=== PATIENT | male | born 1945 | race Caucasian/White ===

== ENCOUNTER 2017-06-21 08:04 | Inpatient (IN) | payer OTHER ==
[~2017-06-21 08:04] MED LIST: BACITRACIN 50,000 UNITS/10 ML SYR IRR ONE; BUPIVACAINE 0.25% 30 ML SDV ONE; CHLORHEXIDINE GLUC HIBICLENS 118 ML BTL TP ONE; THROMBIN (BOVINE) 5,000 UNIT VIAL TP ONE
[2017-06-21] MEDS ORDERED: ACETAMINOPHEN 500 MG TAB PO ONE (08:21)
[2017-06-21] MEDS ORDERED: ceFAZolin 2 GM/SWFI 2 GM/20 ML SYR IVP ONE (08:21)
[2017-06-21] MEDS ORDERED: NS 500 ML IV ONE (08:26)
[2017-06-21] MEDS ORDERED: LIDOCAINE 1% 2 ML INJ ID PRN (08:26)
[2017-06-21] MEDS ORDERED: THROMBIN (BOVINE) 5,000 UNIT VIAL TP ONE ×2 (09:10→19:11)
[2017-06-21] MEDS: hydrALAZINE 20 MG/ML VIAL IVP PRN ×2 (13:28→22:43)
[2017-06-21] MEDS ORDERED: ACETAMINOPHEN 500 MG TAB ONE (16:02)
[2017-06-21] MEDS ORDERED: ceFAZolin 2 GM/SWFI 20 ML SYR IVP ONE (16:18)
--- NOTE | 2017-06-21 17:25 | PDANEPAE ---
ANE History of Present Illness ACDF C4-5 ANE Past Medical History - Cardiovascular History Hx Hypertension: Yes Hx Arrhythmias: No Hx Chest Pain: No Hx Coronary Artery / Peripheral Vascular Disease: No Hx CHF / Valvular Disease: No Hx Palpitations: No Cardiovascular History Comment: HPL, poorly controlled HTN, also with bradycardia noted on floor today. Echo with LVEF of 64% - Pulmonary History Hx COPD: No Hx Asthma/Reactive Airway Disease: No Hx Recent Upper Respiratory Infection: No Hx Oxygen in Use at Home: No Hx Sleep Apnea: No Sleep Apnea Screening Result - Last Documented: Positive - Neurologic History Hx Cerebrovascular Accident: No Hx Seizures: No Hx Dementia: No - Endocrine History Hx Diabetes: Yes Hypothyroid: Yes Hyperthyroid: No Obesity: mild Endocrine History Comment: DM TYPE 2, on insulin for 15 years, also on oral agents. 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 MOHS PROCEDURE 1999. CATARACT 1999 ANE Review of Systems Review of Systems: - Exercise capacity METS (RN): 4 METS ANE Patient History - Allergies Allergies/Adverse Reactions: No Known Allergies Allergy (Unverified 06/18/17 10:51) - Home Medications Home Medications: Herbals/Supplements -Info Only 1 ea PO DAILY 06/18/17 [Last Taken Unknown] Insulin Detemir [Levemir] 25 unit SQ DAILY 06/18/17 [Last Taken Unknown] Levothyroxine [Synthroid 75 mcg (*)] 75 mcg PO DAILY06 06/18/17 [Last Taken Unknown] Pioglitazone HCl [Actos] 30 mg PO HS 06/18/17 [Last Taken Unknown] Quinidine Gluconate [Quinidine Gluconate 324 MG] 324 mg PO HS 06/18/17 [Last Taken Unknown] Rosuvastatin Calcium [Crestor 10mg (RX)] 10 mg PO HS 06/18/17 [Last Taken Unknown] Valsartan [Diovan (*)] 80 mg PO HS 06/18/17 [Last Taken Unknown] Insulin Detemir [Levemir] 18 unit SQ HS 06/21/17 [Last Taken Unknown] - NPO status NPO Since - Liquids (Date): 06/21/17 NPO Since - Liquids (Time): 06:30 NPO Since - Solids (Date): 06/21/17 NPO Since - Solids (Time): 06:00 - Smoking Hx Smoking Status: Never smoked - Family Anes Hx Family Hx Anesthesia Complications: NA ANE Labs/Vital Signs - Vital Signs Blood Pressure: 169/70 Heart Rate: 38 Respiratory Rate: 12 O2 Sat (%): 90 Height: 172.72 cm Weight: 78.925 kg ANE Physical Exam - Airway Neck exam: decreased ROM (Decreased cervical extension due to pain) Mallampati Score: Class 2 Mouth exam: dentures - Pulmonary Pulmonary: clear to auscultation - Cardiovascular Cardiovascular: regular rate and rhythym - ASA Status ASA Status: III ANE Anesthesia Plan Anesthesia Plan: general endotracheal anesthesia
[2017-06-21] MEDS ORDERED: SCOPOLAMINE HYDROBROMIDE 1 MG/3 DAYS PATCH TD ONE ×2 (17:29→17:35)
[2017-06-21] MEDS ORDERED: fentaNYL 100 MCG/2 ML INJ ONE ×3 (17:43→20:25)
[2017-06-21] MEDS ORDERED: MIDAZOLAM 2 MG/2 ML VIAL ONE (17:44)
[2017-06-21] MEDS ORDERED: KETAMINE 200 MG/20 ML VIAL ONE (17:44)
[2017-06-21] MEDS ORDERED: PROPOFOL/EMULSION 500 MG/50 ML BOTTLE IV ONE (17:44)
[2017-06-21] MEDS ORDERED: DEXAMETHASONE 4 MG/ML VIAL ONE (17:45)
[2017-06-21] MEDS ORDERED: CISATRACURIUM BESYLATE 20 MG/10 ML VIAL IV ONE (17:45)
[2017-06-21] MEDS ORDERED: GLYCOPYRROLATE 0.2 MG/1 ML VIAL ONE (18:22)
[2017-06-21] MEDS ORDERED: BUPIVACAINE 0.25% 30 ML SDV ONE (19:11)
[2017-06-21] MEDS ORDERED: PHENYLEPHRINE 10 MG/ML SDV ONE (19:16)
[2017-06-21] MEDS ORDERED: NALOXONE HCL 0.4 MG/ML INJ IVP PRN (19:20)
[2017-06-21] MEDS ORDERED: MAGNESIUM HYDROXIDE 30 ML UDCUP PO PRN (19:30)
[2017-06-21] MEDS ORDERED: NS W/ 20 KCl/L 1,000 ML IV SCH (19:30)
[2017-06-21] MEDS ORDERED: diphenhydrAMINE 25 MG CAP PO PRN (19:30)
[2017-06-21] MEDS ORDERED: LACTULOSE 20 GM/30 ML UDCUP PO PRN (19:30)
[2017-06-21] MEDS ORDERED: BISACODYL 10 MG SUPP PR PRN (19:30)
[2017-06-21] MEDS ORDERED: ONDANSETRON 4 MG/2 ML VIAL IVP PRN (19:30)
[2017-06-21] MEDS ORDERED: ONDANSETRON DISINTEGRATING 4 MG TAB PO PRN (19:30)
[2017-06-21] MEDS ORDERED: ONDANSETRON 4 MG/2 ML VIAL ONE (19:32)
--- NOTE | 2017-06-21 19:36 | SOAPPROG ---
SOAP Progress Note Assessment/Plan: Assessment: 71 yo M sp C3/4 ACDF Plan: stable Hard collar TONI x 1 follow BUN/CR please call with neuro changes 06/21/17 19:34 Subjective: + neck pain, no arm pain. Objective: Vital Signs Temp Pulse Resp BP Pulse Ox 36.9 C 38 L 12 169/70 H 90 L 06/21/17 16:07 06/21/17 18:28 06/21/17 18:28 06/21/17 18:28 06/21/17 18:28 awake, alert PERRL, EOMI TESS x 4 + light touch ICD10 Worksheet Patient Problems: Problems Problem Status Onset Fusion of spine of cervical region Acute - ICD10 Problem Qualifiers (1) Fusion of spine of cervical region
[2017-06-21] MEDS: fentaNYL 100 MCG/2 ML INJ IVP PRN ×3 (19:45→20:45)
[2017-06-21] MEDS ORDERED: ENALAPRILAT DIHYDRATE 1.25 MG/ML VIAL ONE (20:08)
[2017-06-21] MEDS ORDERED: HYDROmorphONE/DILAUDID 2 MG/ML INJ ONE (20:08)
[2017-06-21] MEDS: HYDROmorphONE/DILAUDID 1 MG/ML INJ IVP PRN ×2 (20:10→20:25)
[2017-06-21] MEDS ORDERED: ENALAPRILAT DIHYDRATE 1.25 MG/ML VIAL IV ONE ×2 (20:15→20:45)
[2017-06-21] MEDS ORDERED: QUINIDINE GLUCONATE 324 MG PO SCH (21:00)
--- NOTE | 2017-06-21 22:06 | GOP ---
[f rep st] OPERATIVE REPORT DATE OF OPERATION: 06/21/2017 SURGEON: Gregory Sainz MD NEUROSURGEON: Gregory Sainz MD. THERMOSTAT MAKER: MATEUSZ Flores. ANESTHESIA: General endotracheal. 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 Failed conservative care. High risk surgical candidate given age, comorbidities and req uired surgical intervention. 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 Failed conservative care. High risk surgical candidate given age, comorbidities and re quired surgical intervention. PROCEDURE PERFORMED: Mini-open exposure for complete C3-4 anterior cervical diskectomy and arthrodes is with a structural PEEK interbody spacer and local autograft. Placement of a 23 mm LnK CastleLoc-P anterior cervical plate with self-drilling screws. Use of intraoperative microscopy and fluoroscopy . FINDINGS: ESTIMATED BLOOD LOSS: Trace. INDICATIONS: The patient is a 71-year-old man with extensive comorbidities, who has intractable neck and shoulder pain that has failed to improve with extensive conservative care. He has severe neurof oraminal stenosis at the C3-4 level on the right that is a potential explanation for his discomfort, but he understands that there is no guarantee of this. He has elected to proceed with surgical inter vention, even though he understands that there are risks and that he may not get better or could even get worse. DESCRIPTION OF PROCEDURE: After informed consent was obtained, the patient was taken to the operatin g room and placed in the supine position with the head in the halter retractor system. The anterior cervical region was prepped and draped in sterile fashion. After fluoroscopic localization of correc t levels, the subcutaneous and intramuscular tissues were infiltrated with local anesthesia. A horiz ontal linear incision was then created at the level of the C3-4 interspace. This was carried through the platysmal layer using monopolar electrocautery and carried in the avascular plane between the st ernocleidomastoid and carotid sheath laterally and the strap muscles, trachea, and esophagus medially down to the prevertebral fascia, which was carefully incised with Metzenbaum scissors. The C3-4 int erspace was identified and re-verified using intraoperative fluoroscopy. Following this, the osteoph yte was removed and harvested for local autograft. The Rome distraction pins were inserted and a s light amount of distraction created across the interspace. A complete diskectomy was then performed with preparation of the endplates and removal of posterior longitudinal ligament. Bilateral foramino tomies were performed with special attention paid to the right side where a very thorough and extensi ve decompression of the neural foramina was performed. Following this, the wound was copiously irrig ated with antibiotic irrigation and meticulous hemostasis was achieved. The remaining endplates were carefully prepared and an appropriately sized 11 mm structural PEEK interbody spacer packed with loc al autograft in the center was placed in the interspace under fluoroscopic image guidance. The distr action was removed and an appropriately sized 23 mm CastleLoc-P anterior cervical plate was then plac ed and secured with self-drilling screws. Following re-verification of good position of the plate sc rews and interbody spacers using biplanar fluoroscopy, the locking mechanism was engaged. The wound was copiously irrigated and re-infiltrated with local anesthesia. A drain was placed and the wound w as closed in a layered fashion using interrupted Vicryl sutures followed by Steri-Strips on the skin. COMPLICATIONS: None. DISPOSITION: The patient is currently in the process of being repositioned for extubation. /[id number]/MODL
[2017-06-21] MEDS: POLYETHYLENE GLYCOL 3350 17 GM PKT PO SCH (22:16)
[2017-06-21] MEDS: PIOGLITAZONE HCL 15 MG TAB PO SCH (22:16)
[2017-06-21] MEDS: SENNOSIDES/DOCUSATE SODIUM TAB PO SCH (22:17)
[2017-06-21] MEDS: ROSUVASTATIN CALCIUM 10 MG TAB PO SCH (22:17)
[2017-06-21] MEDS: VALSARTAN 80 MG TAB PO SCH ×2 (22:17→22:33)
[2017-06-21] MEDS: INSULIN GLARGINE 100 UNITS/ML UNIT SC SCH (22:36)
[2017-06-21] MEDS ORDERED: DIAZEPAM 5 MG/ML 1 ML SYR IVP PRN (23:30)
[2017-06-21] MEDS ORDERED: DEXAMETHASONE 10 MG/ML VIAL IVP ONE (23:30)
[2017-06-22] MEDS: VALSARTAN 80 MG TAB PO SCH ×2 (03:32→21:37)
[2017-06-22] MEDS: hydrALAZINE 20 MG/ML VIAL IVP PRN ×2 (03:33→08:51)
[2017-06-22 05:27] LABS: PLATELET COUNT 223 10^3/uL (150-400)
[2017-06-22] MEDS: LEVOTHYROXINE 75 MCG TAB PO SCH (05:53)
[2017-06-22] MEDS: SENNOSIDES/DOCUSATE SODIUM TAB PO SCH ×2 (08:38→21:37)
[2017-06-22] MEDS: FAMOTIDINE 20 MG TAB PO SCH (08:38)
[2017-06-22] MEDS: POLYETHYLENE GLYCOL 3350 17 GM PKT PO SCH ×3 (08:38→21:36)
[2017-06-22] MEDS: METHOCARBAMOL 750 MG TAB PO PRN (08:39)
--- NOTE | 2017-06-22 09:49 | NEUSURGPN ---
Assessment/Plan: Assessment: 71 yo M sp C3/4 ACDF POD#1 Plan: stable Post op xrays pending Hard collar TONI x 1 - continue PT/OT/ORAL SURGERY PHYSICIAN TEDs, SCDs, lovenox to begin on 06/24 follow BUN/CR - will check labs today D/w Dr Mejia please call with neuro changes Subjective: Pt resting in bed, states he is breathing/swallowing ok. Has posterior muscular neck pain. Objective: AAOx3 NAD VSS MAEx4 Motor 5/5 BUE Incision dressed cdi JPx1 C collar on Urinary Catheter in Place: No - Physician Discussed Patient with Dr.: Emeli Neurosurgery Physical Exam - Vitals, I&O, Labs I and O 06/21/17 06/22/17 06/23/17 05:59 05:59 05:59 Intake Total 1460 500 Output Total 675 Balance 785 500 Weight 78.925 kg Intake: Oral (ml) 410 500 IV Intake (ml) 500 IV Infused (ml) 550 NS W/ 20 KCl/L 1,000 ml @ 500 75 mls/hr IV CONT KENDAL Rx #:[id number] ceFAZolin 1 GM/DEXTROSE 50 50 ml @ 200 mls/hr IV Q12HRS KENDAL Rx#:[id number] Output: Urine (ml) 600 Urinal 600 Estimated Blood Loss (ml) 25 TONI Drain Output (ml) 50 Anterior Neck Grey 50 Varela Other: Number of Voids Toilet 1 Urinal 1 Vital Signs Temp Pulse Resp BP Pulse Ox 36.9 C 77 20 171/91 H 96 06/22/17 08:27 06/22/17 08:27 06/22/17 08:27 06/22/17 08:27 06/22/17 08:27 Laboratory Results 06/22/17 04:38 06/22/17 04:38 ICD10 Worksheet Patient Problems: Problems Problem Status Onset Fusion of spine of cervical region Acute
[2017-06-22] MEDS: INSULIN GLARGINE 100 UNITS/ML UNIT SC SCH ×2 (10:05→21:34)
--- NOTE | 2017-06-22 10:12 | POSTANESTH ---
Post Anesthetic Evaluation Cardiovascular Status: Similar to Pre-Op Cond Respiratory Status: Normal, Stable Level of Consciousness/Mental Status: Can Participate in Eval Pain Control: Adequate, Prn Tx Ordered Nausea/Vomiting Control: Adequate, Prn Tx Ordered Complications Possibly Related to Anesthesia: None Noted
[2017-06-22] MEDS: HYDROCODONE/APAP 5/325 TAB PO PRN ×3 (10:46→21:42)
--- NOTE | 2017-06-22 12:27 | ASMTCMCOM ---
CM Note CM Note Notes: Patient admitted for c3-[address] Sherron HORTON recommending home care. I placed a referral for home PT/OT to [facility]; they will be here to speak with him today. He lives with his and anticipates being homebound upon discharge. Case Management will send orders to [facility] when patient is discharged. Date Signed: 06/22/2017 12:27 PM Electronically Signed By:Anabelle Tidwell RN
[2017-06-22] MEDS ORDERED: D50W 25 GM/50 ML SYR IVP PRN (14:29)
--- NOTE | 2017-06-22 16:03 | PDMN ---
Medical Necessity Medical necessity: Patient meets inpatient criteria per PA/MD notes and CMS guidelines: LOS will be > 2 midnights for continued monitoring/treatment of labile postop blood glucose levels.
[2017-06-22] MEDS: INSULIN REGULAR HUMAN 100 UNIT/ML UNIT SC SCH ×2 (16:47→21:41)
[2017-06-22] MEDS: DIAZEPAM 5 MG TAB PO PRN ×2 (18:13→23:06)
[2017-06-22] MEDS ORDERED: QUINIDINE GLUCONATE 324 MG PO SCH (21:00)
[2017-06-22] MEDS: PIOGLITAZONE HCL 15 MG TAB PO SCH (21:35)
[2017-06-22] MEDS: ROSUVASTATIN CALCIUM 10 MG TAB PO SCH (21:37)
[2017-06-23] MEDS: HYDROCODONE/APAP 5/325 TAB PO PRN (05:38)
[2017-06-23] MEDS: LEVOTHYROXINE 75 MCG TAB PO SCH (05:38)
[2017-06-23] MEDS ORDERED: D50W 25 GM/50 ML VIAL ONE (07:07)
[2017-06-23] MEDS ORDERED: D50W 25 GM/50 ML SYR IVP ONE (07:15)
[2017-06-23 08:04] VITALS: TEMP 98
[2017-06-23] MEDS: SENNOSIDES/DOCUSATE SODIUM TAB PO SCH (08:26)
[2017-06-23] MEDS: POLYETHYLENE GLYCOL 3350 17 GM PKT PO SCH ×2 (08:26→16:29)
[2017-06-23] MEDS: FAMOTIDINE 20 MG TAB PO SCH (08:27)
[2017-06-23] MEDS: INSULIN GLARGINE 100 UNITS/ML UNIT SC SCH (08:27)
[2017-06-23] MEDS: INSULIN REGULAR HUMAN 100 UNIT/ML UNIT SC SCH ×2 (08:27→11:48)
--- NOTE | 2017-06-23 08:27 | NEUSURGPN ---
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 -Patient will discharge home this afternoon with home health care- has discharge prescriptions already -TEDs, SCDs, lovenox to begin on 06/24 -Discussed patient with Dr Mejia Please call neurosurgery with questions/concerns Subjective: Improvement with surgery Objective: AxO x3 07/24 BUE, BLE Sensation intact to light touch BLE Dressing/incision CDI TONI present Neuro Check Frequency: per routine Urinary Catheter in Place: No - Physician Discussed Patient with : Emeli Neurosurgery Physical Exam - Vitals, I&O, Labs I and O 06/22/17 06/23/17 06/24/17 05:59 05:59 05:59 Intake Total 1460 900 Output Total 675 30 Balance 785 870 Weight 78.925 kg Intake: Oral (ml) 410 900 IV Intake (ml) 500 IV Infused (ml) 550 NS W/ 20 KCl/L 1,000 ml @ 500 75 mls/hr IV CONT KENDAL Rx #:[id number] ceFAZolin 1 GM/DEXTROSE 50 50 ml @ 200 mls/hr IV Q12HRS KENDAL Rx#:[id number] Output: Urine (ml) 600 Urinal 600 Estimated Blood Loss (ml) 25 TONI Drain Output (ml) 50 30 Anterior Neck Grey 50 30 Varela Other: Intake Quantity Yes Sufficient Number of Voids Toilet 1 1 Urinal 1 Vital Signs Temp Pulse Resp BP Pulse Ox 36.7 C 68 17 125/64 H 97 06/23/17 08:00 06/23/17 08:00 06/23/17 08:00 06/23/17 08:00 06/23/17 08:00 Laboratory Results 06/22/17 04:38 06/22/17 10:54 ICD10 Worksheet Patient Problems: Problems Problem Status Onset Fusion of spine of cervical region Acute
--- NOTE | 2017-06-23 08:32 | PDIAF ---
- Diagnosis Diagnosis: S/P ACDF C3-4 Code Status: Full Code - Medication Management Discharge Medications: Medications to Continue on Transfer Herbals/Supplements -Info Only 1 ea PO DAILY 06/18/17 [Last Taken Unknown] Insulin Detemir [Levemir] 25 unit SQ DAILY 06/18/17 [Last Taken Unknown] Levothyroxine [Synthroid 75 mcg (*)] 75 mcg PO DAILY06 06/18/17 [Last Taken Unknown] Pioglitazone HCl [Actos] 30 mg PO HS 06/18/17 [Last Taken Unknown] Quinidine Gluconate [Quinidine Gluconate 324 MG] 324 mg PO HS 06/18/17 [Last Taken Unknown] Rosuvastatin Calcium [Crestor] 10 mg PO HS 06/18/17 [Last Taken Unknown] Valsartan [Diovan (*)] 80 mg PO HS 06/18/17 [Last Taken Unknown] Insulin Detemir [Levemir] 18 unit SQ HS 06/21/17 [Last Taken Unknown] Hydrocodone/APAP 5/325 [[place] 5/325 (*)] 1 - 2 tab PO Q4HRS PRN #60 tab [Last Taken Unknown] Methocarbamol [Robaxin 750 mg (*)] 750 mg PO QID PRN #60 tab 06/23/17 [Last Taken Unknown] Sennosides/Docusate Sodium [Senokot-S] 1 - 2 tab PO BID tab 06/23/17 [Last Taken Unknown] Discharge Medications: Refer to the Discharge Home Medication list for PRN reason. PICC Care - Routine: N/A - Orders Services needed: Home Care, Physical Therapy, Occupational Therapy Home Care Face to Face: I certify that this patient was under my care and that I had the required [id number] encounter meeting the encounter requirements on the discharge day. My findings support the fact that the patient is homebound as defined in Home Care Face to Face Continued: CMS Chapter 7 Medicare Benefits Manual 30.1.1 , The condition of the patient is such that there exists a normal inability to leave home and consequently, leaving home would require a considerable and taxing effort. Isolation Type: None Diet Recommendation: no restrictions on diet, other (Diabetic diet ) Diet Texture: Regular Texture Diet Wound Care Instructions: Ok to remove dressing 4/5-leave steri strips in place Activity/Weight Bearing Restrictions: No bending/twisting neck. Do not lift greater than 10 pounds Additional: Ok to shower 4/5 - Follow Up Care Current Providers and Referrals: Che Cole PA [Primary Care Provider] - Gregory Sainz MD [Medical Doctor] - follow up in 2 weeks
[2017-06-23 11:13] VITALS: BP 155/78; PULSE 62; RESP 13; O2SAT 92
[2017-06-23] MEDS: METHOCARBAMOL 750 MG TAB PO PRN (16:32)
[2017-06-24] MEDS ORDERED: ENOXAPARIN 40 MG/0.4 ML SYR SC SCH (09:00)
== END 2017-06-23 16:47 | disposition home health service (06) | DRG 473 ==
LOC: FSGY 08:04 → F3N 09:10 → EEVIPCON 10:00 → F3N 10:29 → OBSVTOIN 06-22 15:00
PROVIDERS: ADMIT Neurological Surgery; ATTEND Neurological Surgery
PROC: 0RT30ZZ Resection of Cervical Vertebral Disc, Open Approach (ICD-10-PCS; principal; 2017-06-21 10:00)
PROC: 00NW0ZZ Release Cervical Spinal Cord, Open Approach (ICD-10-PCS; principal; 2017-06-21 10:00)
PROC: 0RG10A0 Fusion of Cervical Vertebral Joint with Interbody Fusion Device, Anterior Approach, Anterior Column, Open Approach (ICD-10-PCS; principal; 2017-06-21 10:00)
DX: M48.02 Spinal stenosis, cervical region (principal); I12.9 Hypertensive chronic kidney disease with stage 1 through stage 4 chronic kidney disease, or unspecified chronic kidney disease; N18.3 Chronic kidney disease, stage 3 (moderate); E78.5 Hyperlipidemia, unspecified; E11.9 Type 2 diabetes mellitus without complications; E03.9 Hypothyroidism, unspecified; Z79.4 Long term (current) use of insulin; Z79.84 Long term (current) use of oral hypoglycemic drugs
CPT/HCPCS: 97116-GP; 97161-GP; 97535-GO; C1713; G0378; G8978-GP-CJ; G8979-GP-CI; G8987-GO-CI; G8988-GO-CI; G8989-GO-CI; J0171; J0360; J0690; J1100; J1170; J1815; J2250; J2270; J2370; J2405; J2704; J3010